=== PATIENT | male | born 1980 | race Caucasian/White ===

== ENCOUNTER 2023-06-15 15:02 | Emergency (ER) | payer SELFPAY ==
[~2023-06-15] VITALS: Ht 172.7 cm; Wt 80.0 kg
[2023-06-15 15:17] VITALS: BP 175/106; PULSE 104; RESP 18; TEMP 98; O2SAT 100
[2023-06-15] MEDS ORDERED: BENZ1LOZ73 MT (17:36)
== END 2023-06-15 18:42 | disposition home or self-care (01) ==
LOC: ER 15:02
DX: R07.0 Pain in throat (principal); I10 Essential (primary) hypertension
CPT/HCPCS: 70360; 99283